=== PATIENT | male | born 1975 | race African-American/Black ===

== ENCOUNTER 2016-12-04 20:30 | Emergency (ER) | payer OTHER ==
[2016-12-04 20:36] VITALS: BP 146/86; PULSE 92; TEMP 97.9; BMI 28.1
[2016-12-04] MEDS ORDERED: IBUPROFEN 600 MG TABLET (FP) PO ONE ×2 (21:19→21:22)
--- NOTE | 2016-12-04 21:19 | PDOC ---
[id number] PAIN Time Seen by Provider: 12/04/16 20:37 History Source: Patient Exam Limitations: No Limitations - History of Present Illness Initial Comments: 12/04/16 21:16 41-year-old male presents to the ED with complaints of left rib pain for the past 2 days. Patient states was walking when he tripped causing him to and on a table striking his left chest and developing an aching pain to the area. Patient denies difficulty breathing but does state pain with movement. Patient also denies shortness of breath, palpitations, skin discoloration, or deformity. Patient states has not taken anything for the above and decided come to the ER for further evaluation Timing/Duration: other Severity: mild Past History - Past Medical History Allergies/Adverse Reactions: Allergies Allergy/AdvReac Type Severity Reaction Status Date / Time No Known Allergies Allergy Verified 12/04/16 20:34 Home Medications: Ambulatory Orders No Home Medications 0 dose .ROUTE UTDICT 05/15/13 Thyroid Disease: No - Immunization History Immunization Up to Date: No - Psycho/Social/Smoking Cessation Hx Anxiety: No Suicidal Ideation: No Smoking Status: Yes Smoking History: Current every day smoker Have you smoked in the past 12 months: No Number of Cigarettes Smoked Daily: 10 Information on smoking cessation initiated: No Hx Alcohol Use: No Drug/Substance Use Hx: No Substance Use Type: None Patient Lives Alone: No Lives with/in: spouse/SO Review of Systems - Review of Systems Able to Perform ROS?: Yes Constitutional: No: Symptoms Reported Musculoskeletal: Yes: Joint Pain (left ribs) Integumentary: No: Bruising, Lumps *Physical Exam - Vital Signs Last Vital Signs Temp Pulse Resp BP Pulse Ox 97.9 F 92 H 18 146/86 98 12/04/16 20:35 12/04/16 20:35 12/04/16 20:35 12/04/16 20:35 12/04/16 20:35 - Physical Exam General Appearance: Yes: Nourished, Appropriately Dressed. No: Apparent Distress Respiratory/Chest: positive: Chest Tender (lateral of the midclavicular line at 6th and 7th rib. no crepitus or deformity), Lungs Clear, Normal Breath Sounds. negative: Respiratory Distress, Accessory Muscle Use Cardiovascular: positive: Regular Rhythm, Regular Rate. negative: Murmur Integumentary: positive: Normal Color, Warm, Moist Neurologic: positive: Motor Strength 5/5 (ambulatory) ED Treatment Course - RADIOLOGY Radiology Studies Ordered: Category Date Time Status RIBS-LEFT SIDE [RAD] Stat Radiology 12/04/16 20:37 Ordered Medical Decision Making - Medical Decision Making 12/04/16 21:18 Patient status post injury causing him pain to the left ribs. Patient tenderness to the left sixth and seventh rib area patient ordered for x-ray and Motrin 12/04/16 21:33 X-ray shows no signs of fracture or acute pathology. Patient be sent home to take Motrin every 8 hours for discomfort and apply heating pad to the affected area splinting with deep breathing and movement *DC/Admit/Observation/Transfer Diagnosis at time of Disposition: Contusion of rib on left side Qualifiers: Encounter type: initial encounter Qualified Code(s): S20.212A - Contusion of left front wall of thorax, initial encounter - Discharge Dispostion Disposition: HOME Condition at time of disposition: Improved - Patient Instructions Printed Discharge Instructions: DI for Rib Contusion Additional Instructions: I have enclosed information on rib contusion. I recommend to take Motrin every 8 hours for discomfort and apply heating pad to the affected area. Also splinting with deep breathing and movement.
== END 2016-12-04 21:38 | disposition home or self-care (01) ==
LOC: JERFT 20:30
DX: S20.212A Contusion of left front wall of thorax, initial encounter (principal); W01.190A Fall on same level from slipping, tripping and stumbling with subsequent striking against furniture, initial encounter; Y93.89 Activity, other specified; Y92.89 Other specified places as the place of occurrence of the external cause
CPT/HCPCS: 71101-TC; 99281-25

== ENCOUNTER 2019-02-24 20:31 | Emergency (ER) | payer OTHER ==
[2019-02-24 20:34] VITALS: BP 135/88; PULSE 98; TEMP 98.8; BMI 28.1
--- NOTE | 2019-02-24 20:57 | PDOC ---
History of Present Illness - General Chief Complaint: Pain Stated Complaint: LT FOOT PAIN Time Seen by Provider: 02/24/19 20:39 History Source: Patient Exam Limitations: No Limitations - History of Present Illness Initial Comments: 02/24/19 20:55 HISTORY OF PRESENT ILLNESS: 43-year-old otherwise healthy male who presents emergency department for evaluation of atraumatic left foot pain which is been present for many years. Patient reports a hard substance on the bottom of his foot which she has tried removing with a nail clipper unsuccessfully. Patient states he stepped into the water today and felt a sharp shooting pain emanating from this hard spot on his foot No recent travel or sick contacts. PAST MEDICAL HISTORY: Denies past medical history SURGICAL HISTORY: Denies ALLERGIES: No known drug allergies REVIEW OF SYSTEMS General/Constitutional: Denies fever or chills. Denies weakness, weight change. HEENT: Denies change in vision. Denies ear pain or discharge. Denies sore throat. Cardiovascular: Denies chest pain or shortness of breath. Respiratory: Denies cough, wheezing, or hemoptysis. Gastrointestinal: Denies nausea, vomiting, diarrhea or constipation. Denies rectal bleeding. Genitourinary: Denies dysuria, frequency, or change in urination. Musculoskeletal: see HPI Skin and breasts: Denies rash or easy bruising. Neurologic: Denies headache, vertigo, loss of consciousness, or loss of sensation. Psychiatric: Denies depression or anxiety. Endocrine: Denies increased thirst. Denies abnormal weight change. Hematologic/Lymphatic: Denies anemia, easy bleeding, or history of blood clots. Allergic/Immunologic: Denies hives or skin allergy. Denies latex allergy. PHYSICAL EXAM General Appearance: Well-appearing, appropriately dressed. No apparent distress , no intoxication. Respiratory/Chest: Lungs CTAB. No shortness of breath, chest tenderness, respiratory distress, accessory muscle use. No crackles, rales, rhonchi, stridor , wheezing, dullness Cardiovascular: RRR. S1, S2. No JVD, murmur, bradycardia, tachycardia. Musculoskeletal/Extremities: 0.5 cm circular area of hyperpigmentation and keratosis present on the plantar surface of the left foot at the fifth MTP. No obvious foreign body, discharge, drainage, erythema present. NVI. Integumentary: Appropriate color, dry, warm. No cyanosis, erythema, jaundice or rash Neurologic: payroll manager II-XII intact. Fully oriented, alert. Appropriate mood/affect. Motor strength 5/5. No appreciable EOM palsy, facial droop or sensory deficit. Past History - Past Medical History Allergies/Adverse Reactions: Allergies Allergy/AdvReac Type Severity Reaction Status Date / Time No Known Allergies Allergy Verified 12/04/16 20:34 Home Medications: Ambulatory Orders No Home Medications 0 dose .ROUTE UTDICT 05/15/13 Thyroid Disease: No - Immunization History Immunization Up to Date: No - Suicide/Smoking/Psychosocial Hx Smoking Status: Yes Smoking History: Current some day smoker Have you smoked in the past 12 months: No Number of Cigarettes Smoked Daily: 10 Information on smoking cessation initiated: No Hx Alcohol Use: Yes (social) Drug/Substance Use Hx: No Substance Use Type: None *Physical Exam - Vital Signs Last Vital Signs Temp Pulse Resp BP Pulse Ox 98.8 F 98 H 20 135/88 98 02/24/19 20:33 02/24/19 20:33 02/24/19 20:33 02/24/19 20:33 02/24/19 20:33 ED Treatment Course - RADIOLOGY Radiology Studies Ordered: Category Date Time Status FOOT-LEFT [RAD] Stat Radiology 02/24/19 20:54 Ordered Medical Decision Making - Medical Decision Making 02/24/19 20:57 A/P: 43-year-old male with atraumatic left plantar foot pain X-ray to rule out foreign body Reassess 02/24/19 21:10 X-rays read by me: No fractures or dislocations present. Hardware from ORIF of the ankle present. No radiopaque foreign body noted. Hyperdense area presents to the plantar surface of the foot near the fifth MTP. Tetanus booster Discharge home with referral for podiatry. 02/24/19 21:12 *DC/Admit/Observation/Transfer Diagnosis at time of Disposition: Callus of foot - Discharge Dispostion Disposition: HOME Condition at time of disposition: Stable Decision to Admit order: No - Referrals Referrals: Keron Glover MD [Primary Care Provider] - Humberto Sawant MD [Staff Physician] - - Patient Instructions Additional Instructions: You have been given a number for weather clerk. Call to schedule an appointment for reevaluation. Tetanus shot has been updated today. This is good for 10 years. Return to emergency department for any new or worsening symptoms. - Post Discharge Activity Forms/Work/School Notes: Back to Work
[2019-02-24] MEDS ORDERED: DIPHTH,PERTUSS(ACELL),TET 0.5 ML DISP.SYRIN IM ONE ×2 (21:11→21:13)
== END 2019-02-24 21:15 | disposition home or self-care (01) ==
LOC: JERFT 20:31
PROC: 3E0234Z Introduction of Serum, Toxoid and Vaccine into Muscle, Percutaneous Approach (ICD-10-PCS; principal; 2019-02-24)
DX: L84 Corns and callosities (principal)
CPT/HCPCS: 73630-TC-LT; 90471; 90715; 99281-25

== ENCOUNTER 2019-04-15 06:12 | Emergency (ER) | payer SELFPAY, OTHER | END 2019-04-15 07:15 | disposition left against medical advice (07) | LOC: JER 06:12 ==

== ENCOUNTER 2019-08-25 19:03 | Emergency (ER) | payer OTHER ==
[2019-08-25 19:23] VITALS: TEMP 98.3; BMI 28.1
--- NOTE | 2019-08-25 19:51 | PDOC ---
History of Present Illness - General Chief Complaint: Choking Sensation Stated Complaint: SOB Time Seen by Provider: 08/25/19 19:41 History Source: Patient Exam Limitations: No Limitations - History of Present Illness Initial Comments: HPI: 44 y/o male presenting to [facility] ER complaining of a dry mouth that is making it hard to breath with occasional palpitations. Breathing improves after clearing the throat. Symptoms started approx. 2-3 hours prior to arrival. Pt took Ecstasy this morning around 2am. States he has not been staying hydrated. Drank 1 alcoholic beverage this afternoon. Denies sore throat, chest pain, back pain , abdominal pain, nausea, vomiting, or diarrhea. Denies h/o of allergies. Social Hx: - EtOH: Frequent - Tobacco: Daily cigarette smoker - Street Drugs: Extasy today, wonders if it could have been mixed with something else - Incarcerated for 7 years, 7 years ago Medical Hx: - Cervical spinal stenosis, recently diagnosed and scheduled to undergo outpatient MRI this week, started on Percocet this Monday by his pain management physician, did not start taking this medication Review of Systems: 10 point review of systems completed. All systems negative except as noted above. Physical Examination: Vital signs and nursing notes reviewed. Constitutional- Well-developed, well-nourished adult male in no acute distress or obvious discomfort. Muscular body habitus. Found standing up next to hospital bed. Answered all questions appropriately and completely. Head- Normocephalic. No obvious external signs of trauma. Throat- Posterior oropharynx mildly erythematous without exudate or swelling. Large uvula. Dry mucosal membranes. Neck- Supple, trachea is midline. Cardiovascular / Chest- Tachycardic rate with regular rhythm. No murmur, rubs, clicks, or gallops. Peripheral pulses- radial pulses full. Respiratory- Breathing unlabored. Equal chest rise and fall. Clear to auscultation bilaterally. No stridor, no wheezing, no rhonchi. Neuro- Alert and oriented x4. Moving all four extremities spontaneously. No facial asymmetry. No slurred speech. Gait normal. Observed ambulating unassisted through the department without obvious difficulty. Skin- Warm, dry, and intact. No bruising, rashes, or other lesions. Psych- Affect- appropriate. Mood- normal. Speech was non-labored, non- pressured. MDM: 44 y/o male presenting with dry mouth and sensation of choking vs congestion. Afebrile. Vitals remarkable for tachycardia without hypotension. Normoxic on room air. Physical exam as described above. Suspect likely dry mouth secondary to poor hydration with ecstasy abuse. EKG unremarkable for ischemic findings. CXR concerning for narrowing of trachea per ED wet read. Radiology report pending. Possible epiglottis; low suspicion for will evaluate with neck soft tissue CT. Ordered ICFB, Solu-medrol, and Ceftriaxone presumptively. Reviewed laboratory data. No clinically significant derangement. 25 Aug 2019 22:[address] result and laboratory data. No significant derangements. Patent airway without signs of epiglottitis. Pt reassessed. Reports feeling better. Discussed physical exam findings, laboratory results, and xrays findings with pt. Answered all questions. Provided return precautions. pt expressed verbal understanding and agreement with plan to discharge home with outpatient follow up. Provided copies of todays results. Humberto Matias M.D., PGY2 Emergency Medicine Resident Past History - Past Medical History Allergies/Adverse Reactions: Allergies Allergy/AdvReac Type Severity Reaction Status Date / Time No Known Allergies Allergy Verified 04/15/19 06:29 Home Medications: Ambulatory Orders No Home Medications 0 dose .ROUTE UTDICT 05/15/13 COPD: No Thyroid Disease: No - Immunization History Immunization Up to Date: No - Psycho Social/Smoking Cessation Hx Smoking Status: Yes Smoking History: Current every day smoker Have you smoked in the past 12 months: Yes Number of Cigarettes Smoked Daily: 10 Information on smoking cessation initiated: No Hx Alcohol Use: Yes (recreation) Drug/Substance Use Hx: Yes (recreation) Substance Use Type: None *Physical Exam - Vital Signs Last Vital Signs Temp Pulse Resp BP Pulse Ox 98.3 F 99 H 19 146/90 100 08/25/19 19:19 08/25/19 19:19 08/25/19 19:19 08/25/19 19:19 08/25/19 19:19 Vital Signs - Vital Signs #1 Time: 20:25 Blood Pressure: 168/100 BP Location: Left Arm Blood Pressure Position: Sitting Pulse Rate: 120 Respiratory Rate: 18 O2 Sat by Pulse Oximetry (%): 100 Oxygen Delivery Method: Room Air ED Treatment Course - LABORATORY CBC & Chemistry Diagram: 08/25/19 20:27 08/25/19 20:27 - RADIOLOGY Radiology Studies Ordered: Category Date Time Status CHEST PA & LAT [RAD] Stat Radiology 08/25/19 19:50 Ordered Radiograph Interpretation: CT of Neck Soft Tissue w/o Contrast: PRELIMINARY REPORT FROM IMAG[facility] G[facility]ST [facility]PERIENCE MANAGER EXAM: CT neck without contrast DATE: 2019-08-25 20:44:20 IMAGES: 367 HISTORY: choking sensation REPORT: Airway and epiglottis appear intact. No definite focal neck mass or fluid collection is identified. One or more of the following dose reduction techniques were used: automated exposure control, adjustment of the mA and/or kV according to patient size, use of iterative reconstructive technique. THIS DOCUMENT HAS BEEN ELECTRONICALLY SIGNED Black Goff MD 08/25/2019 21:19 EST Discharge - Discharge Information Problems reviewed: Yes Clinical Impression/Diagnosis: Dry mouth, unspecified, Ecstasy abuse, Tobacco abuse counseling Condition: Good Disposition: HOME - Admission No - Follow up/Referral Referrals: Keron Glover MD [Primary Care Provider] - - Patient Discharge Instructions Patient Printed Discharge Instructions: DI for Dehydration -- Adult Additional Instructions: You were seen today for dry mouth with shortness of breath. This is likely related to the ecstasy you took last night. Your initial xray was concerning for a possible narrowing of your windpipe, but the CT showed it was normal. Your blood work and EKG were normal. Stay well hydrated for the next few days. Try chewing gum to help increase your marte. You can take over the counter Tylenol or Advil as needed for pain. Take as directed on the package insert. Do not exceed the recommended dosage. YOU NEED TO QUIT SMOKING! Shortness of breath will be what you feel every single hour of every single day if you continue to smoke. It is a difficult process, but it is not one you have to go through alone. Call the [facility] Smokers' Quitline at 3-762-WB-QUITS ( ) or visit www.[facility]. The Quitline also provides free starter kits of nicotine replacement therapy (NRT) to eligible [facility]. Services are free and confidential. Follow up with your primary care doctor in the next week or as needed. You will need to call to make an appointment. A copy of todays results are attached to this packet. Take it to the appointment so your doctor can review them. Go to the nearest emergency department if your condition worsens or you feel like you need additional emergency evaluation. Print Language: SERBIAN - Post Discharge Activity Work/Back to School Note: Back to Work
--- NOTE | 2019-08-25 19:59 | PDOC ---
Attending Attestation - Resident Resident Name: Humberto Matias - ED Attending Attestation I have performed the following: I have examined & evaluated the patient, The case was reviewed & discussed with the resident, I agree w/resident's findings & plan - HPI HPI: 08/25/19 21:08 Pt comes with persistent cough and difficulty breathing and sputum production. Incidentally he used some ecstasy and he has had this SOB feeling x 2 days and it is getting worse. Pt is tachycardic and hypertensive and he is anxious. He is talking on cell phone with girlfriend and he is drinking bottled water because he states that he is dehydrated. He also has O2sat of 99% and he has good color/no cyanosis. He is afebrile, though he reports night sweats and fevers when he sleeps - Physicial Exam PE: 08/25/19 21:24 Pt is standing and pacing in his room. Pt has submental swelling Pt is afebrile No rash No swelling beneath his tongue Pt has no neck nodes Pt has no wheeze and no rales or crackles. Pt has [id number] Abd soft NT ND - Medical Decision Making 08/25/19 21:07 CT neck shows that pt has no threat of loss of airway/ no airway constriction or emergency airway requirement 08/25/19 21:48 Patient Name: LUCIO RINALDI PRELIMINARY REPORT FROM IMAG[facility] EXAM: CT neck without contrast DATE: 2019-08-25 20:44:20 IMAGES: 367 HISTORY: choking sensation REPORT: Airway and epiglottis appear intact. No definite focal neck mass or fluid collection is identified. 08/25/19 21:49 Pt with continued complaint of choking sensation. Breathing easliy. normal pulsox. 08/25/19 22:24 Girlfriend at bedside. Pt feels better; labs normal; vitals normal. Heart rate 95. Pt will be discharged and asked to follow with ENT
[2019-08-25] MEDS ORDERED: SODIUM CHLORIDE 0.9% 500 ML INFUS.BAG IV ONE (20:24)
[2019-08-25 20:32] LABS: BASO % 0.6 % (0-2.0); EOS % 0.2 % (0-4.5); HEMATOCRIT 43.3 % (35.4-49); HEMOGLOBIN 14.9 GM/dL (11.7-16.9); MCHC 34.3 g/dl (32.0-35.9); MEAN CELL VOLUME 87.3 fl (80-96); MEAN PLT VOLUME 7.5 fl (7.5-11.1); NEUT % 59.2 % (42.8-82.8); PLATELET COUNT 246 K/MM3 (134-434); RBC 4.97 M/mm3 (4.00-5.60); RDW 14.5 % (11.9-15.9); WHITE BLOOD COUNT 9.6 K/mm3 (4.0-10.0)
[2019-08-25] MEDS ORDERED: methylPREDNISolone NA SUCC 125 MG/2 ML VIAL IVPUSH ONE (20:42)
[2019-08-25] MEDS ORDERED: CEFTRIAXONE 2,000 MG in DEXTROSE 5%-WATER - 50 ML IVPB ONE (20:43)
[2019-08-25 21:01] LABS: ALBUMIN 4.6 g/dl (3.4-5.0); BILIRUBIN,TOTAL 0.3 mg/dL (0.2-1); BLOOD UREA NITROGEN 6.1 mg/dL (7-18); CALCIUM 9.7 mg/dL (8.5-10.1); CREATININE 1.1 mg/dL (0.55-1.3); POTASSIUM 3.5 mmol/L (3.5-5.1); TOT PROT 8.5 g/dl (6.4-8.2)
[2019-08-25] MEDS ORDERED: methylPREDNISolone NA SUCC 125 MG/2 ML VIAL ONE (21:17)
[2019-08-25] MEDS ORDERED: CEFTRIAXONE 2 GM/100 ML BAG IVPB ONE (21:17)
[2019-08-25 22:35] VITALS: BP 168/100; PULSE 120
[2019-08-26 02:20] LABS: URINE APPEARANCE Clear; URINE BILIRUBIN Negative (NEGATIVE); URINE COLOR Yellow; URINE GLUCOSE (UA) Negative (NEGATIVE); URINE KETONE Negative (NEGATIVE); URINE LEUK ESTERASE Negative (NEGATIVE); URINE NITRITE Negative (NEGATIVE); URINE PROTEIN Negative (NEGATIVE); URINE UROBILINOGEN 0.2 mg/dL (0.2-1.0)
--- NOTE | 2019-08-26 09:42 | EKG ---
Test Reason : Blood Pressure : / mmHG Vent. Rate : 105 BPM Atrial Rate : 105 BPM P-R Int : 188 ms QRS Dur : 100 ms QT Int : 352 ms P-R-T Axes : 071 022 043 degrees QTc Int : 465 ms SINUS TACHYCARDIA CANNOT RULE OUT ANTERIOR INFARCT , AGE UNDETERMINED ABNORMAL ECG NO PREVIOUS ECGS AVAILABLE Confirmed by SEVERINO MUNIZ MD ([id number]) on 08/26/2019 9:42:13 AM Referred By: Confirmed By:SEVERINO MUNIZ MD
== END 2019-08-25 22:45 | disposition home or self-care (01) ==
LOC: JER 19:03
PROC: 3E03329 Introduction of Other Anti-infective into Peripheral Vein, Percutaneous Approach (ICD-10-PCS; principal; 2019-08-25)
PROC: 3E0333Z Introduction of Anti-inflammatory into Peripheral Vein, Percutaneous Approach (ICD-10-PCS; 2019-08-25)
DX: R68.2 Dry mouth, unspecified (principal); R06.02 Shortness of breath; F15.10 Other stimulant abuse, uncomplicated; F17.210 Nicotine dependence, cigarettes, uncomplicated; M48.02 Spinal stenosis, cervical region; Z71.6 Tobacco abuse counseling
CPT/HCPCS: 36415; 70490-TC; 71046-TC-FY; 80053; 81003; 82550; 82553; 84484; 85025; 93005; 93010; 96365; 96375; 99284-25

== ENCOUNTER 2020-02-10 07:20 | Emergency (ER) | payer OTHER ==
[2020-02-10 07:28] VITALS: TEMP 98.2; BMI 28.4
[2020-02-10] MEDS ORDERED: MAG HYDROX/AL HYDROX/SIMETH -MYLANTA- ORAL SUSPENSION PO ONE (07:52)
[2020-02-10] MEDS ORDERED: FAMOTIDINE 10 MG TABLET PO ONE (07:53)
--- NOTE | 2020-02-10 07:57 | PDOC ---
History of Present Illness - General Chief Complaint: Chest Pain Stated Complaint: CHEST PAIN Time Seen by Provider: 02/10/20 07:27 History Source: Patient Exam Limitations: No Limitations - History of Present Illness Initial Comments: 02/10/20 07:58 44 yo male pmh no sig medical hx presents to the ED with non exertional CP. Pt states he was woke up from sleep around 4 am with left sided CP described as sharp, non radiating, constant, non exertional, worse with palpation over left chest and raising left arm. Pt admits to eating in bed (pizza) over the past few weeks with new symptoms of "heart burn" takes TUMS with some improvement in symptoms. Todays pain is sharp vs previous discomfort described as burning. Denies SOB, abdominal pain, hx of similar pain, family hx of cardiac disease, F/C/N/V, changes in bowel or bladder habits. Past History - Medical History Allergies/Adverse Reactions: Allergies Allergy/AdvReac Type Severity Reaction Status Date / Time No Known Allergies Allergy Verified 02/10/20 07:22 Home Medications: Ambulatory Orders No Home Medications 0 dose .ROUTE UTDICT 05/15/13 COPD: No Thyroid Disease: No - Immunization History Immunization Up to Date: No - Psycho-Social/Smoking History Smoking Status: Yes Smoking History: Current every day smoker Have you smoked in the past 12 months: Yes Number of Cigarettes Smoked Daily: 10 Information on smoking cessation initiated: No - Substance Abuse Hx (Audit-C & DAST Scrn) How often the patient has a drink containing alcohol: 4 0r more times/wk Number of drinks the patient has on a typical day: 1 or 2 How often the patient has six or more drinks on one occasion: Less than monthly Score: In Men: 4 or > Positive; In Women: 3 or > Positive: 5 Screen Result (Pos requires Nsg. Audit-10AR): Positive In the last yr the pt used illegal drug/Rx for NonMed reason: No Score: Yes response is considered Positive: 0 Screen Result (Positive result requires Nsg. DAST-10): Negative Review of Systems - Review of Systems Constitutional: Yes: Symptoms Reported. No: Fever HEENTM: Yes: Symptoms Reported Respiratory: Yes: Symptoms reported. No: Shortness of Breath Cardiac (ROS): Yes: Chest Pain. No: Syncope, Chest Tightness ABD/GI: No: Constipated, Diarrhea, Nausea, Vomiting : No: Burning, Dysuria, Discharge, Frequency Musculoskeletal: Yes: Symptoms Reported Integumentary: Yes: Symptoms Reported Neurological: Yes: Symptoms reported *Physical Exam - Vital Signs Last Vital Signs Temp Pulse Resp BP Pulse Ox 98.2 F 95 H 20 146/92 100 02/10/20 07:22 02/10/20 07:22 02/10/20 07:22 02/10/20 07:22 02/10/20 07:22 - Physical Exam General Appearance: Yes: Nourished, Appropriately Dressed. No: Apparent Distress HEENT: positive: EOMI Neck: positive: Supple. negative: Carotid bruit Respiratory/Chest: positive: Lungs Clear, Normal Breath Sounds. negative: Respiratory Distress, Rapid RR, Crackles, Rales, Rhonchi, Stridor, Wheezing Cardiovascular: positive: Regular Rhythm, Regular Rate, S1, S2. negative: Edema, JVD, Murmur Vascular Pulses: Dorsalis-Pedis (R): 4+, Doralis-Pedis (L): 4+ Gastrointestinal/Abdominal: positive: Flat, Soft. negative: Pulsatile Mass, Protuberent, Distended, Guarding, Rebound, Tenderness Musculoskeletal: negative: CVA Tenderness Extremity: positive: Normal Capillary Refill, Normal Inspection, Normal Range of Motion Integumentary: positive: Normal Color, Dry, Warm Neurologic: positive: Fully Oriented, Alert, Normal Mood/Affect, Normal Response Heart Score/ECG Review - History History: Slightly suspicious - Electrocardiogram EKG: Normal - Age Age: </= 45 - Risk Factors Risk Factors Heart Score: No Hx Hypercholesterolemia, No Hx Hypertension, No Hx Diabetes, Yes Smoking History, No Positive family hx of cardiac disease, No Hx Obesity Based on the list above the patient has:: 1-2 risk factors ED Treatment Course - LABORATORY CBC & Chemistry Diagram: 02/10/20 07:40 02/10/20 07:40 - RADIOLOGY Radiology Studies Ordered: Category Date Time Status CHEST X-RAY PORTABLE* [RAD] Stat Radiology 02/10/20 07:49 Ordered Medical Decision Making - Medical Decision Making 02/11/20 14:31 44 yo male pmh no sig medical hx presents to the ED with non exertional CP. Pt states he was woke up from sleep around 4 am with left sided CP described as sharp, non radiating, constant, non exertional, worse with palpation over left chest and raising left arm. Pt admits to eating in bed (pizza) over the past few weeks with new symptoms of "heart burn" takes TUMS with some improvement in symptoms. Todays pain is sharp vs previous discomfort described as burning. Denies SOB, abdominal pain, hx of similar pain, family hx of cardiac disease, F/C/N/V, changes in bowel or bladder habits. vitals stable EKG NSR without signs of ischemia pt appears comfortable, given GI cocktail States symptoms resolved. Labs WNL including 1st trop 2nd trop neg Likely related to GERD. discussed strategies to reduce GERD symptoms and over the counter omeprazole and tums for treatment Will DC pt with PCP and Cardiology follow up Discharge - Discharge Information Problems reviewed: Yes Clinical Impression/Diagnosis: Chest pain Condition: Stable Disposition: HOME - Admission No - Follow up/Referral Referrals: Keron Glover MD [Primary Care Provider] - Markos Ashford MD [Staff Physician] - Ceasar Whatley MD [Staff Physician] - - Patient Discharge Instructions Patient Printed Discharge Instructions: DI for Gastroesophageal Reflux Disease (GERD), DI for Atypical Chest Pain Additional Instructions: Please see your Primary Doctor within the next 48 hours. Call to make an appointment with the Notching Press Operator Doctor and ENT Doctor referred to you within 1 week. Return to the ER for new or concerning symptoms. Take over the counter Omeprazole and Tums for continued pain and heart burn. Do not eat fried and oily foods 2 hours prior to bed time. Return to the ER for new or concerning symptoms. - Post Discharge Activity
[2020-02-10] MEDS ORDERED: FAMOTIDINE 10 MG TABLET ONE (08:08)
[2020-02-10] MEDS ORDERED: MAG HYDROX/AL HYDROX/SIMETH 30 ML UNIT-DOSE CUP ONE (08:08)
[2020-02-10 08:16] LABS: BASO % 0.3 % (0-2.0); HEMATOCRIT 42.4 % (35.4-49); HEMOGLOBIN 14.4 GM/dL (11.7-16.9); LYMPH % 48.6 % (8-40); MCH 29.2 pg (25.7-33.7); MEAN CELL VOLUME 85.9 fl (80-96); MEAN PLT VOLUME 7.9 fl (7.5-11.1); MONO % 10.9 % (3.8-10.2); NEUT % 39.2 % (42.8-82.8); PLATELET COUNT 227 K/MM3 (134-434); RBC 4.94 M/mm3 (4.00-5.60); RDW 14.1 % (11.9-15.9); WHITE BLOOD COUNT 7.3 K/mm3 (4.0-10.0)
[2020-02-10 08:26] LABS: INR 0.91 (0.83-1.09); PROTHROMBIN TIME (PATIENT) 10.7 SEC (9.7-13.0)
[2020-02-10 08:29] LABS: ACTIVATED PTT 29.6 SECONDS (25.2-36.5)
[2020-02-10 08:36] LABS: ALBUMIN 4.1 g/dl (3.4-5.0); ALK PHOS 121 U/L (45-117); ANION GAP 10 MMOL/L (8-16); BILIRUBIN,TOTAL 0.2 mg/dL (0.2-1); BLOOD UREA NITROGEN 8.5 mg/dL (7-18); CALCIUM 9.2 mg/dL (8.5-10.1); CHLORIDE 107 mmol/L (98-107); CO2 25 mmol/L (21-32); CREATININE 1.2 mg/dL (0.55-1.3); GLUCOSE,RANDOM 96 mg/dL (74-106); MAGNESIUM 2.2 mg/dL (1.8-2.4); POTASSIUM 3.6 mmol/L (3.5-5.1); SGOT/AST 29 U/L (15-37); SGPT/ALT 39 U/L (13-61); SODIUM 142 mmol/L (136-145); TOT PROT 7.7 g/dl (6.4-8.2)
--- NOTE | 2020-02-10 09:55 | PDOC ---
Attending Attestation - Resident Resident Name: Christopher Willard - ED Attending Attestation I have performed the following: I have examined & evaluated the patient, The case was reviewed & discussed with the resident, I agree w/resident's findings & plan, Exceptions are as noted - HPI HPI: 02/10/20 09:48 44-year-old male no past medical history here today complaining of sharp left- sided chest pain approximately 4 AM. Lasted a few minutes states that he did have a second episode later in the morning denies any shortness of breath no associated nausea vomiting or diaphoresis has not had similar pain in the past. Patient denies any family history of heart disease he is a smoker half pack per day no previous cardiac work-up. At this time patient is asymptomatic no recent leg swelling no history of PE or DVT at the time he had his chest pain he did note that when he raised his arms the pain was worse no sick contacts no fevers chills or cough - Physicial Exam PE: 02/10/20 09:48 Awake alert no acute distress lungs are clear bilaterally there is some left center chest wall tenderness near the costochondral junction in the left pectoralis muscle no crepitus no step-off heart is regular 30 murmurs rubs or gallops abdomen is soft and nontender extremities are warm well perfused there is no noted peripheral edema or calf tenderness. Patient has symmetric 2+ pulses is awake alert oriented x3 - Medical Decision Making 02/10/20 09:49 44-year-old male history of tobacco use here today complaining of sharp intermittent chest pain which has resolved reproducible chest wall tenderness on exam likely musculoskeletal however due to his risk factors of smoking and his current age 44 we will send basic enzymes patient will require short 4-hour observation for repeat troponin EKG chest x-ray will be obtained rule out underlying infection or other causes for his pain. 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 dc to home given referral for cardiology Heart Score/ECG Review #1 General ECG Interpretation: Sinus Rhythm, Normal Rate (98), Normal Intervals, No acute ischemic changes Discharge - Discharge Information Problems reviewed: Yes Clinical Impression/Diagnosis: Chest pain Condition: Stable Disposition: HOME - Follow up/Referral Referrals: Keron Glover MD [Primary Care Provider] - Markos Ashford MD [Staff Physician] - Ceasar Whatley MD [Staff Physician] - - Patient Discharge Instructions Patient Printed Discharge Instructions: DI for Gastroesophageal Reflux Disease (GERD), DI for Atypical Chest Pain Additional Instructions: Please see your Primary Doctor within the next 48 hours. Call to make an appointment with the Fitness Coordinator Doctor and ENT Doctor referred to you within 1 week. Return to the ER for new or concerning symptoms. Take over the counter Omeprazole and Tums for continued pain and heart burn. Do not eat fried and oily foods 2 hours prior to bed time. Return to the ER for new or concerning symptoms. - Post Discharge Activity
--- NOTE | 2020-02-10 11:14 | EKG ---
Test Reason : Blood Pressure : / mmHG Vent. Rate : 098 BPM Atrial Rate : 098 BPM P-R Int : 198 ms QRS Dur : 096 ms QT Int : 360 ms P-R-T Axes : 065 025 045 degrees QTc Int : 459 ms NORMAL SINUS RHYTHM NORMAL ECG WHEN COMPARED WITH ECG OF 25-AUG-2019 20:46, NO SIGNIFICANT CHANGE WAS FOUND Confirmed by TONY DOWELL MD ([id number]) on 02/10/2020 11:13:41 AM Referred By: Confirmed By:TONY DOWELL MD
[2020-02-10 14:11] VITALS: BP 144/89; PULSE 91
== END 2020-02-10 14:12 | disposition home or self-care (01) ==
LOC: JER 07:20
DX: R07.9 Chest pain, unspecified (principal)
CPT/HCPCS: 36415; 71045-TC-FY; 80053; 82550; 82553; 83735; 84484; 85025; 85610; 85730; 93005; 93010; 99285-25

== ENCOUNTER 2021-04-25 17:39 | Emergency (ER) | payer BC, OTHER ==
[2021-04-25 17:50] VITALS: BMI 28.1
[2021-04-25] MEDS ORDERED: SODIUM CHLORIDE 0.9% 500 ML INFUS.BAG IV ONE (20:00)
[2021-04-25] MEDS ORDERED: ONDANSETRON 4 MG/2 ML VIAL IVPUSH ONE (20:09)
[2021-04-25] MEDS ORDERED: MECLIZINE HCL 25 MG TABLET (FP) PO ONE (20:10)
[2021-04-25] MEDS ORDERED: MECLIZINE HCL 25 MG TABLET (FP) ONE (20:33)
[2021-04-25] MEDS ORDERED: ONDANSETRON 4 MG/2 ML VIAL ONE (20:33)
[2021-04-25 20:40] LABS: HEMATOCRIT 43.3 % (35.4-49); HEMOGLOBIN 15.2 GM/dL (11.7-16.9); MCH 29.8 pg (25.7-33.7); MCHC 35.1 g/dl (32.0-35.9); MEAN CELL VOLUME 84.8 fl (80-96); MEAN PLT VOLUME 7.5 fl (7.5-11.1); PLATELET COUNT 255 10^3/uL (134-434); RBC 5.11 M/mm3 (4.00-5.60); RDW 14.4 % (11.9-15.9); WHITE BLOOD COUNT 4.7 K/mm3 (4.0-10.0)
[2021-04-25 20:42] LABS: PH,URINE 6.5 (5.0-8.0); URINE APPEARANCE Error; URINE BILIRUBIN NEGATIVE (NEGATIVE); URINE COLOR YELLOW; URINE GLUCOSE (UA) NEGATIVE (NEGATIVE); URINE KETONE NEGATIVE (NEGATIVE); URINE LEUK ESTERASE NEGATIVE (NEGATIVE); URINE NITRITE NEGATIVE (NEGATIVE); URINE PROTEIN NEGATIVE (NEGATIVE); URINE UROBILINOGEN 0.2 mg/dL (0.2-1.0)
[2021-04-25 21:03] LABS: CHLORIDE 106 mmol/L (98-107); SODIUM 140 mmol/L (136-145)
[2021-04-25 21:04] LABS: METHADONE, UR NEGATIVE (NEGATIVE); OPIATES, URI NEGATIVE (NEGATIVE); PHENCYCLIDINE,URINE NEGATIVE (NEGATIVE); URINE BARBITURATES NEGATIVE (NEGATIVE)
[2021-04-25 21:05] LABS: CALCIUM 9.1 mg/dL (8.5-10.1)
[2021-04-25 21:06] LABS: ALBUMIN 3.9 g/dl (3.4-5.0); ANION GAP 6 MMOL/L (8-16); BLOOD UREA NITROGEN 8.6 mg/dL (7-18); CO2 28 mmol/L (21-32); GLUCOSE,RANDOM 91 mg/dL (74-106)
[2021-04-25 21:09] LABS: CREATININE 1.3 mg/dL (0.55-1.3); SGOT/AST 23 U/L (15-37); SGPT/ALT 27 U/L (13-61)
[2021-04-25 21:10] LABS: BILIRUBIN,TOTAL 0.4 mg/dL (0.2-1); TOT PROT 7.7 g/dl (6.4-8.2)
[2021-04-25 21:12] LABS: ALK PHOS 110 U/L (45-117)
[2021-04-25 21:28] LABS: COCAINE, UR POSITIVE (NEGATIVE); URINE AMPHETAMINES NEGATIVE (NEGATIVE); URINE BENZODIAZEPINES NEGATIVE (NEGATIVE)
[2021-04-25] MEDS ORDERED: ACETAMINOPHEN 1000 MG/100 ML VIAL (NON FORMULARY) IVPB ONE (22:26)
[2021-04-25] MEDS ORDERED: ACETAMINOPHEN INJECTION 100 ML IVPB ONE (22:31)
[2021-04-25 23:03] VITALS: BP 152/89; PULSE 85; TEMP 98.3
== END 2021-04-25 23:04 | disposition home or self-care (01) ==
LOC: JER 17:39
PROC: 3E033GC Introduction of Other Therapeutic Substance into Peripheral Vein, Percutaneous Approach (ICD-10-PCS; principal; 2021-04-25)
DX: R42 Dizziness and giddiness (principal)
CPT/HCPCS: 36415; 70450-TC; 80053; 80307; 81003; 84484; 85027; 93005; 93010; 99285-25; J0131

== ENCOUNTER 2021-05-16 23:52 | Emergency (ER) | payer BC, OTHER ==
[2021-05-16 23:59] VITALS: BP 137/86; PULSE 79; TEMP 98.8; BMI 28.1
[2021-05-17] MEDS ORDERED: ACETAMINOPHEN 500 MG TABLET (FP) PO ONE (01:15)
[2021-05-17] MEDS ORDERED: MECLIZINE HCL 25 MG TABLET (FP) PO ONE (01:20)
[2021-05-17] MEDS ORDERED: ACETAMINOPHEN 325 MG TABLET (FP) ONE (01:22)
[2021-05-17] MEDS ORDERED: MECLIZINE HCL 25 MG TABLET (FP) ONE (01:22)
== END 2021-05-17 03:53 | disposition home or self-care (01) ==
LOC: JER 23:52
DX: R42 Dizziness and giddiness (principal)
CPT/HCPCS: 99283-25

== ENCOUNTER 2021-11-09 16:17 | Emergency (ER) | payer OTHER ==
[2021-11-09 16:27] VITALS: BP 114/72; PULSE 80; TEMP 97; BMI 28.8
== END 2021-11-09 17:43 | disposition home or self-care (01) ==
LOC: JERFT 16:17
DX: M79.641 Pain in right hand (principal)
CPT/HCPCS: 99282-25

== ENCOUNTER 2023-01-10 14:41 | Emergency (ER) | payer OTHER ==
[2023-01-10 14:56] VITALS: RESP 18; BMI 33.6
[2023-01-10 16:52] VITALS: BP 128/77; PULSE 81; TEMP 98.7
[2023-01-10] MEDS ORDERED: FAMOTIDINE 20 MG/50 ML IVPB 20 MG in PREMIX 50 IVPB ONE (17:20)
[2023-01-10] MEDS ORDERED: SODIUM CHLORIDE 1,000 ML IV ONE (17:20)
[2023-01-10] MEDS ORDERED: FAMOTIDINE 20 MG/50 ML IVPB 20 MG/50 ML MG IVPB ONE (17:45)
[2023-01-10 18:39] LABS: PH,URINE 5.5 (5.0-8.0); URINE APPEARANCE CLEAR; URINE BILIRUBIN NEGATIVE (NEGATIVE); URINE COLOR DK YELLOW; URINE GLUCOSE (UA) NEGATIVE (NEGATIVE); URINE KETONE TRACE (NEGATIVE); URINE LEUK ESTERASE NEGATIVE (NEGATIVE); URINE NITRITE NEGATIVE (NEGATIVE); URINE PROTEIN TRACE (NEGATIVE)
[2023-01-10 18:41] LABS: BASO % 0.4 % (0-2.0); EOS % 0.4 % (0-4.5); HEMATOCRIT 45.5 % (35.4-49); HEMOGLOBIN 15.8 GM/dL (11.7-16.9); LYMPH % 27.2 % (8-40); MCH 29.6 pg (25.7-33.7); MCHC 34.7 g/dl (32.0-35.9); MEAN CELL VOLUME 85.1 fl (80-96); MEAN PLT VOLUME 7.7 fl (7.5-11.1); MONO % 10.3 % (3.8-10.2); NEUT % 61.7 % (42.8-82.8); PLATELET COUNT 296 10^3/uL (134-434); RBC 5.35 M/mm3 (4.00-5.60); WHITE BLOOD COUNT 5.7 K/mm3 (4.0-10.0)
[2023-01-10 19:02] LABS: POTASSIUM 4.5 mmol/L (3.5-5.1)
[2023-01-10 19:07] LABS: CALCIUM 9.4 mg/dL (8.5-10.1)
[2023-01-10 19:08] LABS: ALBUMIN 3.5 g/dl (3.4-5.0)
[2023-01-10 19:10] LABS: CREATININE 1.2 mg/dL (0.55-1.3)
[2023-01-10 19:12] LABS: BILIRUBIN,TOTAL 0.5 mg/dL (0.2-1); TOT PROT 7.5 g/dl (6.4-8.2)
== END 2023-01-10 21:38 | disposition home or self-care (01) ==
LOC: JER 14:41
PROC: 3E033GC Introduction of Other Therapeutic Substance into Peripheral Vein, Percutaneous Approach (ICD-10-PCS; principal; 2023-01-10)
DX: K59.00 Constipation, unspecified (principal); R10.84 Generalized abdominal pain
CPT/HCPCS: 36415; 74177-TC; 80053; 81003; 83690; 85025; 87086; 99285-25

== ENCOUNTER 2023-09-15 21:14 | Emergency (ER) | payer OTHER ==
[2023-09-15 21:20] VITALS: BP 149/98; PULSE 92; RESP 18; TEMP 98.4; BMI 28.4
[2023-09-15 21:57] LABS: EPI CELLS 0 /uL (0-25.1); HYALINE CASTS 2 /uL (0-3.1); URINE APPEARANCE CLEAR; URINE BACTERIA 9 /uL (0-1359); URINE BILIRUBIN NEGATIVE (NEGATIVE); URINE COLOR YELLOW; URINE GLUCOSE (UA) NEGATIVE (NEGATIVE); URINE KETONE NEGATIVE (NEGATIVE); URINE LEUK ESTERASE 2+ (NEGATIVE); URINE NITRITE NEGATIVE (NEGATIVE); URINE PROTEIN NEGATIVE (NEGATIVE); URINE RBC 55 /uL (0-23.9); URINE WBC 910 /uL (0-25.8)
[2023-09-15] MEDS ORDERED: SULFAMETHOXAZOLE/TRIMETHOPRIM 800MG/160MG D.S. TABLET PO ONE (23:15)
[2023-09-15] MEDS ORDERED: SULFAMETHOXAZOLE/TRIMETHOPRIM 800MG/160MG D.S. TABLET ONE (23:19)
== END 2023-09-15 23:34 | disposition home or self-care (01) ==
LOC: JERFT 21:14 → JER 21:14
DX: N39.0 Urinary tract infection, site not specified (principal); R30.0 Dysuria; R50.9 Fever, unspecified; R05.9 Cough, unspecified; R09.81 Nasal congestion; R35.0 Frequency of micturition; R30.9 Painful micturition, unspecified; Z20.822 Contact with and (suspected) exposure to COVID-19
CPT/HCPCS: 0241U-QW; 81003; 87086; 99283-25

== ENCOUNTER 2024-05-22 00:51 | Emergency (ER) | payer OTHER ==
[2024-05-22 00:56] VITALS: BP 139/79; PULSE 88; RESP 18; TEMP 98.8; BMI 28.1
[2024-05-22] MEDS ORDERED: KETOROLAC TROMETHAMINE 30 MG/1 ML VIAL ONE (01:38)
[2024-05-22] MEDS ORDERED: ACETAMINOPHEN 325 MG TABLET (FP) ONE (01:38)
[2024-05-22] MEDS: KETOROLAC TROMETHAMINE 30 MG/1 ML VIAL IM ONE (01:50)
[2024-05-22] MEDS: ACETAMINOPHEN 500 MG TABLET (FP) PO ONE (01:50)
[2024-05-22 03:23] LABS: HIV INTERPRETATION NEGATIVE (NEGATIVE)
== END 2024-05-22 04:31 | disposition home or self-care (01) ==
LOC: JER 00:51
PROC: 3E0233Z Introduction of Anti-inflammatory into Muscle, Percutaneous Approach (ICD-10-PCS; principal; 2024-05-22)
DX: R05.9 Cough, unspecified (principal); R09.81 Nasal congestion; R51.9 Headache, unspecified; R68.83 Chills (without fever); J06.9 Acute upper respiratory infection, unspecified; Z20.822 Contact with and (suspected) exposure to COVID-19
CPT/HCPCS: 0241U-QW; 36415; 71046-TC-FY; 86803; 87389; 99284-25